=== PATIENT | male | born 1960 | race Caucasian/White ===

== ENCOUNTER 2017-10-13 12:07 | Emergency (ER) | payer OTHER ==
[2017-10-13 12:13] VITALS: RESP 18
--- NOTE | 2017-10-13 13:52 | EDPHY ---
H & P Stated Complaint: L KNEE PAIN HPI/ROS: HPI: This is a 57-year-old male who presents with Chief Complaint: Left knee pain Location: Left knee Quality: Pain Duration: Started this afternoon Signs and Symptoms: No bleeding, no radiation, no numbness, no weakness, no tingling, no incontinence, no decreased range of motion, + swelling, + pain Timing: Rapid onset Severity: Moderate to severe Context: Patient is generally healthy with no significant medical problems and works in the OR [employer] presents with complaints of left knee pain that was sudden onset constant in nature nonradiating. He got to work early this morning had been on his feet approximately 10 hours. He notes some [id number] swelling. Denies any injury/trauma/redness/warmth. In the past he had a meniscus injury of the right that was corrected with arthroscopy by Dr. Haddad. He walks approximately 20,000 steps per day and is very active. Has no prior history of arthritis in his knees. Modifying Factors: None Comment: ROS: see HPI Constitutional: No fever, no chills, no weight loss Eyes: No blurred vision Respiratory: No shortness of breath, no cough Cardiovascular: No chest pain Gastrointestinal: No nausea, no vomiting no diarrhea Genitourinary: No dysuria Extremities: No myalgias Neurologic: No weakness, no numbness Skin: No rashes Hematologic: No bruising, no bleeding MEDICAL/SURGICAL/SOCIAL HISTORY: Medical history: Generally healthy. Does not take any regular medications. Surgical history: L hand surgery/R KNEE meniscus SURG Social history: Employed at [employer], [employer] CONSTITUTIONAL: Pleasant adult white male, awake and alert, no obvious distress HEENT: Atraumatic and normocephalic, PERRL, EOMI. Tympanic membranes clear. Oropharynx clear, no exudate and moist pink mucosa. Airway patent. No lymphadenopathy. No meningismus. Cardiovascular: Normal S1/S2, regular rate, regular rhythm, without murmur rub or gallop. PULMONARY/CHEST: Symmetrical and nontender. Clear to auscultation bilaterally. Good air movement. No accessory muscle usage. ABDOMEN: Soft, nondistended, nontender, no rebound, no guarding, no peritoneal signs, no masses or organomegaly. No CVAT. EXTREMITIES: 2/2 PTT pulses, left KNEE: Mild effusion, middle medial and lateral joint line tenderness, full extension to 180, flexion to 120, no pain with varus and valgus exam. No pain with anterior drawer or posterior drawer test. strength 5/5, no deformities, no clubbing, no cyanosis or edema. NEUROLOGICAL: no focal neuro deficits. GCS 15. SKIN: Warm and dry, no erythema. no rash. Good capillary refill. Source: Patient Exam Limitations: No limitations - Personal History Current Tetanus/Diphtheria Vaccine: Unsure - Medical/Surgical History Hx Asthma: No Hx Chronic Respiratory Disease: No Hx Diabetes: No Hx Cardiac Disease: No Hx Renal Disease: No Hx Cirrhosis: No Hx Alcoholism: No Hx HIV/AIDS: No Hx Splenectomy or Spleen Trauma: No Other PMH: L hand surgery/R KNEE SURG - Social History Smoking Status: Former smoker Constitutional: Initial Vital Signs Temperature (C) 36.8 C 10/13/17 12:10 Heart Rate 66 10/13/17 12:10 Respiratory Rate 18 10/13/17 12:10 Blood Pressure 175/106 H 10/13/17 12:10 O2 Sat (%) 96 10/13/17 12:10 O2 Delivery Mode Room Air Allergies/Adverse Reactions: No Known Allergies Allergy (Verified 10/13/17 12:08) Home Medications: Medication Instructions Recorded NK [No Known Home Meds] 06/04/15 Medical Decision Making - Diagnostics Imaging Results: Imaging Impressions Knee X-Ray 10/13/17 12:41 Impression: Minimal early degenerative change in the patellofemoral compartment. Prepatellar bursitis or contusion. Minimal joint effusion. Procedures: Procedure: Splint placement. A left knee immobilizer was applied by the Emergency Room marine propulsion technician. After application of the splint I returned and re-examined the patient. The splint was adequately immobilizing the joint and distal to the splint the patient's circulation and sensation was intact. ED Course/Re-evaluation: Left knee x-ray ordered and shows per my read minimal degenerative changes patellofemoral compartment. Prepatellar bursitis or contusion. Minimal joint effusion. No signs of neurovascular compromise/tenting of skin/compartment syndrome/ extremities and joints examined above and below area of concern and are neurovascularly intact. Low yield for internal derangement but cannot rule out totally. Suspect overuse versus bursitis. Minimal effusion and aspiration not indicated. Placed in knee immobilizer and given crutches. Advised rice therapy. This patient was seen with secondary supervising physician. Patient's presentation, labs/imaging, treatment and plan of care were reviewed with secondary supervising physician. Differential Diagnosis: Differential diagnosis includes but is not limited to degenerative changes of the knee, internal derangement, sprain, overuse, effusion. Departure - Departure Disposition: Home, Routine, Self-Care Clinical Impression: Knee effusion, left, Left anterior knee pain Condition: Good Instructions: Swollen Knee Joint (ED) Additional Instructions: Wear the knee immobilizer and use crutches for weight-bearing as tolerated on the left lower extremity until pain free or seen by Orthopedics. Take Tylenol 650 mg every 4 hours and/or Ibuprofen 600 mg every 8 hours with food as needed for pain. Apply ice for 30 minutes at a time; 2-3 times per day for the next 1-2 days. Follow up with Orthopedics in 5-7 days if symptoms persist or worsening at which time they will evaluate and recommend with you if conservative management versus further diagnostic imaging MRI is indicated. The x-rays obtained in the emergency department today demonstrate no evidence of an obvious fracture. Sometimes fractures are not obvious on the initial set of x-rays performed in the ED. For this reason, you should have repeat x-rays performed in 7-10 days if you are having any pain exclude the possibility of an occult fracture. Referrals: John Haddad MD [Medical Doctor] - As per Instructions Stand Alone Forms: Work Excuse
[2017-10-13 14:02] VITALS: BP 158/90; PULSE 85; TEMP 98.4; O2SAT 95
== END 2017-10-13 14:03 | disposition home or self-care (01) ==
DX: M25.462 Effusion, left knee (principal); Z87.891 Personal history of nicotine dependence